=== PATIENT | female | born 1950 | race Native Hawaiian/Other Pacific Islander ===

== ENCOUNTER 2018-08-16 14:25 | Outpatient (CLI) | payer OTHER | END 2018-08-16 20:08 | disposition home or self-care (01) | LOC: CT 14:25 | DX: R06.02 Shortness of breath (principal); R50.9 Fever, unspecified; J20.8 Acute bronchitis due to other specified organisms; J41.8 Mixed simple and mucopurulent chronic bronchitis | CPT/HCPCS: 36415; 82565; 84520; Q9963 ==